=== PATIENT | female | born 1990 ===

== ENCOUNTER 2017-02-20 18:35 | Emergency (ER) | payer SELFPAY ==
[2017-02-20 19:03] VITALS: BMI 24.1
[2017-02-20 19:06] VITALS: BP 130/75; PULSE 74; TEMP 98.7; O2SAT 99
[2017-02-20] MEDS ORDERED: Sodium Chloride 0.9% 500 ML IV ONE (19:28)
--- NOTE | 2017-02-20 19:54 | C.PDOC ---
History Of Present Illness 26 y/o female presents to the ED with complaints of persistent vaginal bleeding x1 week. Pt reports heavy bleeding with clots. History of heavy irregular bleeding on hormonal therapy in the past; hasn't followed up with OB since [place]. Denies dysuria, frequency, fever, dizziness or any other complaints. Time Seen by Provider: 02/20/17 19:28 Chief Complaint (Nursing): Female Genitourinary History Per: Patient History/Exam Limitations: no limitations Onset/Duration Of Symptoms: Days Current Symptoms Are (Timing): Still Present Severity: Moderate Associated Symptoms: denies: Fever, Urinary Symptoms Alleviating Factors: None Recent travel outside of the [place]: No Abnormal Vaginal Bleeding: Yes Past Medical History Reviewed: Historical Data, Nursing Documentation, Vital Signs Vital Signs: Last Vital Signs Temp 98.7 F 02/20/17 19:03 Pulse 74 02/20/17 19:03 Resp 20 02/20/17 21:15 BP 130/75 02/20/17 19:03 Pulse Ox 99 02/20/17 20:44 Family History: States: Unknown Family Hx - Social History Hx Alcohol Use: No Hx Substance Use: No - Immunization History Hx Tetanus Toxoid Vaccination: No Hx Influenza Vaccination: No Hx Pneumococcal Vaccination: No Review Of Systems Except As Marked, All Systems Reviewed And Found Negative. Constitutional: Negative for: Fever Gastrointestinal: Negative for: Abdominal Pain Genitourinary: Positive for: Vaginal Bleeding. Negative for: Dysuria, Frequency Neurological: Negative for: Dizziness Physical Exam - Physical Exam Appears: Non-toxic, No Acute Distress Skin: Warm, Dry, No Rash Head: Atraumatic, Normacephalic Chest: Symmetrical Cardiovascular: Rhythm Regular, No Murmur Respiratory: Normal Breath Sounds, No Rales, No Rhonchi, No Wheezing Gastrointestinal/Abdominal: Normal Exam, Soft, No Tenderness Pelvic: No Cervical Motion Tenderness, No Adnexal Tenderness, Other (brownish blood in vaginal vault, no active bleeding; cervical os closed) Extremity: Bilateral: Atraumatic Neurological/Psych: Oriented x3, Normal Speech ED Course And Treatment - Laboratory Results Result Diagrams: 02/20/17 20:14 02/20/17 20:14 O2 Sat by Pulse Oximetry: 99 (room air) Pulse Ox Interpretation: Normal Progress Note: Plan: labs, UA, IV fluids. Pt is stable nd in NAD, will follow up with oB clinic Disposition Counseled Patient/Family Regarding: Diagnosis, Need For Followup, Rx Given - Disposition Referrals: Lorenzo Casanova [Staff Provider] - [facility] [Outside] Disposition: HOME/ ROUTINE Disposition Time: 20:30 Condition: STABLE Additional Instructions: Please follow up with OB clinic- LOIS ortegaa Return to ER if worse Instructions: Dysfunctional Uterine Bleeding (ED) Forms: Work/School/Gym Excuse Print Language: MONGOLIAN - Clinical Impression Clinical Impression: Vaginal bleeding - PA / CARD HANGER / Resident Statement MD/DO has reviewed & agrees with the documentation as recorded. - Scribe Statement The provider has reviewed the documentation as recorded by the Parkibvini Schwarz All medical record entries made by the Parkibvini were at my direction and personally dictated by me. I have reviewed the chart and agree that the record accurately reflects my personal performance of the history, physical exam, medical decision making, and the department course for this patient. I have also personally directed, reviewed, and agree with the discharge instructions and disposition.
[2017-02-20 20:21] LABS: BASO # 0.1 K/uL (0.0-0.2); BASO % 1.1 % (0.0-2.0); EOS # 0.2 K/uL (0.0-0.7); EOS % 2.3 % (0.0-4.0); HEMATOCRIT 35.7 % (34.0-47.0); LYMPH # 4.2 K/uL (1.0-4.3); LYMPH % 41.5 % (20.0-40.0); MEAN CELL VOLUME 81.9 fL (81.0-99.0); MEAN CORPUSCULAR HEMOGLOBIN 26.4 pg (27.0-31.0); MEAN CORPUSCULAR HGB CONC 32.2 g/dL (33.0-37.0); MEAN PLATELET VOLUME 7.9 fL (7.2-11.7); MONO # 0.9 K/uL (0.0-0.8); MONO % 8.9 % (0.0-10.0); RED CELL DISTRIBUTION WIDTH 14.6 % (11.5-14.5); WHITE BLOOD COUNT 10.2 K/uL (4.8-10.8)
[2017-02-20 20:27] LABS: CHLORIDE 104 mmol/L (98-107); RBC URINE 2733 /hpf (0-3); URINE BACTERIA FEW (<OCC); URINE BILIRUBIN NEGATIVE (NEGATIVE); URINE BLOOD 3+ (NEGATIVE); URINE COLOR Yellow (YELLOW); URINE GLUCOSE (UA) NORMAL (Normal); URINE KETONE NEGATIVE (NEGATIVE); URINE LEUKOCYTE ESTERASE TRACE Leu/uL (Negative); URINE PROTEIN 2+ mg/dL (NEGATIVE); URINE UROBILINOGEN NORMAL mg/dL (0.2-1.0); WBC URINE 9 /hpf (0-5)
[2017-02-20 20:28] LABS: POTASSIUM 3.6 mmol/L (3.6-5.2); SODIUM 140 mmol/L (132-148)
[2017-02-20 20:30] LABS: ALB/GLOB RATIO 1.3 (1.0-2.1); ALKALINE PHOSPHATASE 96 U/L (38-126); ALT/SGPT 27 U/L (9-52); AST/SGOT 23 U/L (14-36); BILIRUBIN,TOTAL 0.4 mg/dL (0.2-1.3); BLOOD UREA NITROGEN 11 mg/dL (7-17); CARBON DIOXIDE 26 mmol/L (22-30); GFR AFRICAN-AMERICAN > 60; TOTAL PROTEIN 7.5 g/dL (6.3-8.3)
[2017-02-20 20:31] LABS: CALCIUM 8.8 mg/dl (8.6-10.4); GLUCOSE,RANDOM 90 mg/dL (65-105)
[2017-02-20 21:16] VITALS: RESP 20
== END 2017-02-20 21:15 | disposition home or self-care (01) ==
LOC: C.ER 18:35
DX: N93.9 Abnormal uterine and vaginal bleeding, unspecified (principal)
CPT/HCPCS: 80053; 81001; 84703; 85025; 96360; 99284; J7040

== ENCOUNTER 2017-04-12 11:52 | Emergency (ER) | payer OTHER ==
[2017-04-12 11:57] VITALS: BMI 25.7
[2017-04-12 11:58] VITALS: BP 118/67; PULSE 69; RESP 20; TEMP 97.9; O2SAT 97
--- NOTE | 2017-04-12 12:14 | C.PDOC ---
History Of Present Illness 26 y/o female presents to ED with complaints of itchy rash on abdomen and left leg for 4 days. Patient denies fever, recent travel, or anyone else at home having similar symptoms. No other complaints at this time. Time Seen by Provider: 04/12/17 12:07 Chief Complaint (Nursing): Abnormal Skin Integrity History Per: Patient History/Exam Limitations: no limitations Onset/Duration Of Symptoms: Days Current Symptoms Are (Timing): Still Present Location Of Injury: Left: Leg, Anterior: Abdomen Quality Of Symptoms: Itching Additional History Per: Patient Past Medical History Reviewed: Historical Data, Nursing Documentation, Vital Signs Vital Signs: Last Vital Signs Temp 97.9 F 04/12/17 11:57 Pulse 69 04/12/17 11:57 Resp 20 04/12/17 11:57 BP 118/67 04/12/17 11:57 Pulse Ox 97 04/12/17 12:24 - Medical History PMH: No Chronic Diseases Family History: States: Unknown Family Hx - Social History Hx Alcohol Use: No Hx Substance Use: No - Immunization History Hx Tetanus Toxoid Vaccination: No Hx Influenza Vaccination: No Hx Pneumococcal Vaccination: No Review Of Systems Constitutional: Negative for: Fever, Chills ENT: Negative for: Ear Pain, Throat Pain Respiratory: Negative for: Cough, Shortness of Breath Gastrointestinal: Negative for: Nausea, Vomiting, Diarrhea Skin: Positive for: Rash Neurological: Negative for: Headache, Dizziness Physical Exam - Physical Exam Appears: Well, No Acute Distress Skin: Warm, Rash (Right flank and lower abdomen scattered insect bite lesions with surrounding erythema), No Ecchymosis, Other (Left leg scattered insect bites) Head: Atraumatic, Normacephalic Eye(s): bilateral: Normal Inspection Oral Mucosa: Moist Neck: Normal ROM Chest: Symmetrical Extremity: Normal ROM, Capillary Refill (<2 seconds) Neurological/Psych: Oriented x3, Normal Speech ED Course And Treatment O2 Sat by Pulse Oximetry: 97 (RA) Pulse Ox Interpretation: Normal Medical Decision Making Medical Decision Making: Impression: insect bites, no signs of cellulitis Plan: Benadryl and Prescriptions Disposition Counseled Patient/Family Regarding: Diagnosis, Need For Followup, Rx Given - Disposition Disposition: HOME/ ROUTINE Disposition Time: 12:30 Condition: STABLE Additional Instructions: Apply cream twice daily to affected area Take Benadryl every 8 hours as needed for itching Prescriptions: DiphenhydrAMINE [Benadryl] 25 mg PO Q8 #30 cap Hydrocortisone [Cortisone] 28 gm TP BID #1 cream..g. Instructions: Insect Bite or Sting (ED) Forms: [employer] (Colombian) Print Language: JAPANESE - POA Present On Arrival: None - Clinical Impression Clinical Impression: Insect bite - wound - Scribe Statement The provider has reviewed the documentation as recorded by the Kaylene Bell All medical record entries made by the Kaylene were at my direction and personally dictated by me. I have reviewed the chart and agree that the record accurately reflects my personal performance of the history, physical exam, medical decision making, and the department course for this patient. I have also personally directed, reviewed, and agree with the discharge instructions and disposition.
== END 2017-04-12 12:33 | disposition home or self-care (01) ==
LOC: C.ER 11:52
DX: S30.861A Insect bite (nonvenomous) of abdominal wall, initial encounter (principal); S80.862A Insect bite (nonvenomous), left lower leg, initial encounter; W57.XXXA Bitten or stung by nonvenomous insect and other nonvenomous arthropods, initial encounter; Y93.9 Activity, unspecified; Y92.9 Unspecified place or not applicable

== ENCOUNTER 2017-06-19 13:25 | Emergency (ER) | payer OTHER ==
[2017-06-19 13:25] VITALS: BMI 25.7
[2017-06-19] MEDS ORDERED: Sodium Chloride 0.9% 1,000 ML IV ONE (15:58)
[2017-06-19 16:56] LABS: BASO # 0.1 K/uL (0.0-0.2); BASO % 1.1 % (0.0-2.0); EOS # 0.2 K/uL (0.0-0.7); EOS % 1.4 % (0.0-4.0); HEMATOCRIT 29.8 % (34.0-47.0); LYMPH # 3.9 K/uL (1.0-4.3); LYMPH % 32.5 % (20.0-40.0); MEAN CORPUSCULAR HGB CONC 32.1 g/dL (33.0-37.0); MEAN PLATELET VOLUME 7.4 fL (7.2-11.7); MONO # 0.9 K/uL (0.0-0.8); MONO % 7.8 % (0.0-10.0); NRBC % 0.2 % (0.0-2.0); RED CELL DISTRIBUTION WIDTH 15.3 % (11.5-14.5); WHITE BLOOD COUNT 12.2 K/uL (4.8-10.8)
[2017-06-19 16:59] LABS: MEAN CELL VOLUME 77.9 fL (81.0-99.0)
[2017-06-19 17:17] LABS: CHLORIDE 99 mmol/L (98-107)
[2017-06-19 17:18] LABS: POTASSIUM 3.7 mmol/L (3.6-5.2); SODIUM 133 mmol/L (132-148)
[2017-06-19 17:20] LABS: CARBON DIOXIDE 22 mmol/L (22-30); GFR AFRICAN-AMERICAN > 60
[2017-06-19 17:21] LABS: ALB/GLOB RATIO 1.2 (1.0-2.1); ALKALINE PHOSPHATASE 79 U/L (38-126); ALT/SGPT 37 U/L (9-52); AST/SGOT 31 U/L (14-36); BILIRUBIN,TOTAL 0.5 mg/dL (0.2-1.3); BLOOD UREA NITROGEN 13 mg/dL (7-17); CALCIUM 8.8 mg/dl (8.6-10.4); GLUCOSE,RANDOM 115 mg/dL (65-105)
[2017-06-19 17:23] LABS: RBC URINE 1909 /hpf (0-3); URINE BACTERIA OCC (<OCC); URINE BILIRUBIN NEGATIVE (NEGATIVE); URINE BLOOD 3+ (NEGATIVE); URINE COLOR Yellow (YELLOW); URINE GLUCOSE (UA) NORMAL (Normal); URINE KETONE NEGATIVE (NEGATIVE); URINE LEUKOCYTE ESTERASE NEG Leu/uL (Negative); URINE PROTEIN 1+ mg/dL (NEGATIVE); URINE UROBILINOGEN NORMAL mg/dL (0.2-1.0); WBC URINE 1 /hpf (0-5)
[2017-06-19 18:12] VITALS: BP 128/83; PULSE 72; RESP 16; TEMP 98; O2SAT 100
--- NOTE | 2017-06-19 20:20 | US ---
EXAM: US Pelvis Complete, Transabdominal US Pelvis, Transvaginal CLINICAL HISTORY: 26 years old, female; Signs and symptoms; Menstruation abnormalities; Irregular menstruation; Additional info: Abnormal/prolonged vaginal bleeding TECHNIQUE: Real-time transabdominal and transvaginal pelvic ultrasound (complete) with image documentation. Transvaginal imaging was used for better evaluation of the endometrium and adnexa. COMPARISON: No relevant prior studies available. FINDINGS: Uterus/cervix: The uterus measures 8.5 x 3.4 x 5.2 cm. Endometrial stripe measures 7 mm. . Right ovary: The right ovary measures 3 x 2.1 x 1.9 cm. Blood flow seen in the right ovary on color Doppler examination. Left ovary: The left ovary measures 2.7 x 2 x 2.3 cm. Subcentimeter follicles are present. Free fluid: No free fluid. Bladder: Unremarkable as visualized. Wall is normal thickness for degree of distention. IMPRESSION: No acute findings. EXAM: US Pelvis, Transvaginal EXAM DATE/TIME: Exam ordered 06/19/2017 5:22 PM CLINICAL HISTORY: 26 years old, female; Signs and symptoms; Menstruation abnormalities; Irregular menstruation; Additional info: Abnormal/prolonged vaginal bleeding TECHNIQUE: Real-time transvaginal pelvic ultrasound (complete) with image documentation. Transvaginal imaging was used for better evaluation of the endometrium and adnexa. COMPARISON: No relevant prior studies available. FINDINGS: Uterus/cervix: The uterus is a retroflexed. The endometrial stripe measures 1.3 cm in thickness. Right ovary: The right ovary measures 3.1 x 1.7 x 2.8 cm and contains subcentimeter follicles. There is blood flow within the right ovary on color Doppler examination. Left ovary: The left ovary measures 4.2 x 2.6 x 2.7 cm. Several subcentimeter peripheral follicles are noted. There is blood flow seen within the left ovary on color Doppler examination. Free fluid: A small amount of fluid is seen in the posterior cul-de-sac. Bladder: Empty bladder which cannot be evaluated with this probe. IMPRESSION: 1. Multiple peripheral subcentimeter follicles are noted in both ovaries. This has been described in association with polycystic ovaries but is a nonspecific finding. Additionally the ovaries are normal in size.
--- NOTE | 2017-06-19 20:43 | C.PDOC ---
History Of Present Illness Pt c/o abnormal vaginal bleeding. Time Seen by Provider: 06/19/17 15:42 Chief Complaint (Nursing): Female Genitourinary History Per: Patient Onset/Duration Of Symptoms: Days (about 1 month), Waxing/Waning Current Symptoms Are (Timing): Still Present Severity: Moderate Quality Of Discomfort: Cramping Alleviating Factors: None Additional History Per: Prior Records Abnormal Vaginal Bleeding: Yes Past Medical History Reviewed: Historical Data, Nursing Documentation, Vital Signs Vital Signs: Last Vital Signs Temp 98 F 06/19/17 18:11 Pulse 72 06/19/17 18:11 Resp 16 06/19/17 18:11 BP 128/83 06/19/17 18:11 Pulse Ox 100 06/19/17 18:11 - Medical History PMH: No Chronic Diseases Surgical History: No Surg Hx Family History: States: Unknown Family Hx - Social History Hx Alcohol Use: No Hx Substance Use: No - Immunization History Hx Tetanus Toxoid Vaccination: No Hx Influenza Vaccination: No Hx Pneumococcal Vaccination: No Review Of Systems Except As Marked, All Systems Reviewed And Found Negative. Constitutional: Negative for: Fever Cardiovascular: Negative for: Chest Pain Respiratory: Negative for: Shortness of Breath Gastrointestinal: Negative for: Vomiting Genitourinary: Positive for: Vaginal Bleeding, Pelvic Pain Musculoskeletal: Negative for: Neck Pain Skin: Negative for: Rash Neurological: Negative for: Weakness, Numbness, Seizures Physical Exam - Physical Exam Appears: Non-toxic, No Acute Distress Skin: Warm, Dry Head: Atraumatic, Normacephalic Neck: Normal ROM, Supple Cardiovascular: Rhythm Regular Respiratory: Normal Breath Sounds, No Accessory Muscle Use Gastrointestinal/Abdominal: Soft, No Tenderness Back: No CVA Tenderness Extremity: Normal ROM Neurological/Psych: Oriented x3, Normal Motor, Normal Sensation ED Course And Treatment - Laboratory Results Result Diagrams: 06/19/17 16:52 06/19/17 16:52 Interpretation Of Abnormal: Mild anemia Urine POC: Negative O2 Sat by Pulse Oximetry: 100 Pulse Ox Interpretation: Normal - CT Scan/US Pelvic US Other Rad Studies (CT/US): Read By Radiologist, Radiology Report Reviewed CT/US Interpretation: IMPRESSION: 1. Multiple peripheral subcentimeter follicles are noted in both ovaries. This. has been described in association with polycystic ovaries but is a nonspecific. finding. Additionally the ovaries are normal in size. Reassessment Condition: Improved Disposition Counseled Patient/Family Regarding: Studies Performed, Diagnosis, Need For Followup, Rx Given - Disposition Referrals: Lorenzo Casanova [Staff Provider] - Disposition: HOME/ ROUTINE Disposition Time: 20:43 Condition: STABLE Additional Instructions: Follow up with a Gasoline Truck Operator within 1 week for further evaluation and treatment. Return to the ER if you develop worsening of symptoms or if you have any other concerns. Prescriptions: Ferrous Sulfate 325 mg PO TID #30 tablet Ibuprofen [Motrin Tab] 600 mg PO TID PRN #30 tab PRN Reason: Pain, Moderate (4-7) Instructions: Dysfunctional Uterine Bleeding (ED) Forms: [employer] (Iranian), Work Excuse Print Language: HEBREW - Clinical Impression Clinical Impression: DUB (dysfunctional uterine bleeding)
== END 2017-06-19 20:50 | disposition home or self-care (01) ==
LOC: C.ER 13:25
DX: N93.8 Other specified abnormal uterine and vaginal bleeding (principal)
CPT/HCPCS: 76830; 76856; 80053; 81001; 84702; 84703; 85025; 85610; 85730; 86850; 86900; 96360; 99284; J7040

== ENCOUNTER 2017-10-09 09:12 | Emergency (ER) | payer OTHER ==
[2017-10-09 09:19] VITALS: BMI 24.2
[2017-10-09 09:20] VITALS: BP 136/85; PULSE 81; TEMP 99.1; O2SAT 99
--- NOTE | 2017-10-09 09:42 | C.PDOC ---
History Of Present Illness 26 y/o female presents to the ER complaining of a painful lesion to the left upper lip which has been present for 2 days. Patient states that this is her first episode. Patient reports that she has been applying Neosporin which provided no relief. She denies having trauma, injuries, fever, and other complaints. Time Seen by Provider: 10/09/17 09:21 Chief Complaint (Nursing): Abnormal Skin Integrity History Per: Patient History/Exam Limitations: no limitations Onset/Duration Of Symptoms: Days Current Symptoms Are (Timing): Still Present Severity: Moderate Past Medical History Reviewed: Historical Data, Nursing Documentation, Vital Signs Vital Signs: Last Vital Signs Temp 99.1 F 10/09/17 09:20 Pulse 81 10/09/17 09:20 Resp 18 10/09/17 10:15 BP 136/85 10/09/17 09:20 Pulse Ox 99 10/09/17 16:04 - Medical History PMH: No Chronic Diseases Surgical History: No Surg Hx Family History: States: No Known Family Hx - Social History Hx Alcohol Use: No Hx Substance Use: No - Immunization History Hx Tetanus Toxoid Vaccination: No Hx Influenza Vaccination: No Hx Pneumococcal Vaccination: No Review Of Systems Except As Marked, All Systems Reviewed And Found Negative. Constitutional: Negative for: Fever, Chills Skin: Positive for: Lesions (lesion on left upper lip) Physical Exam - Physical Exam Appears: Non-toxic, No Acute Distress, Other (comfortable) Skin: Normal Color, Warm Head: Atraumatic, Normacephalic Eye(s): bilateral: Normal Inspection, PERRL Nose: Normal Oral Mucosa: Moist, Other (no lesions) Lips: Swelling (mild swelling on left upper lip), Lesions (vesicular lesion on left upper lip), Other (mildly tender to palpation on left upper lip) Throat: Normal, No Erythema, No Exudate Neck: Supple Chest: Symmetrical Cardiovascular: Rhythm Regular Respiratory: Normal Breath Sounds, No Accessory Muscle Use, No Rales, No Rhonchi , No Wheezing Gastrointestinal/Abdominal: Normal Exam, Soft, No Tenderness Extremity: Normal ROM Neurological/Psych: Oriented x3, Normal Speech, Normal Cognition, Normal Motor, Normal Sensation ED Course And Treatment O2 Sat by Pulse Oximetry: 99 (RA) Pulse Ox Interpretation: Normal Progress Note: Patient given Zovirax. Patient discharged with prescription for Zovirax and told to follow up with ENT in 1 week. Disposition Counseled Patient/Family Regarding: Studies Performed, Diagnosis, Need For Followup, Rx Given - Disposition Referrals: [facility] [Outside] Disposition: HOME/ ROUTINE Disposition Time: 09:55 Condition: STABLE Additional Instructions: FOLLOW UP WITH ENT WITHIN 1 WEEK RETURN TO ER IF SYMPTOMS WORSEN Prescriptions: Acyclovir 400 mg PO TID #21 tablet Instructions: Oral Herpes Simplex Virus Infections (ED) Forms: Gen Discharge Inst Greek, Work Excuse Print Language: TAMAZIGHT - Clinical Impression Clinical Impression: Oral herpes simplex infection - Scribe Statement The provider has reviewed the documentation as recorded by the Kaylene Chery Provider Attestation: All medical record entries made by the Parkibvini were at my direction and personally dictated by me. I have reviewed the chart and agree that the record accurately reflects my personal performance of the history, physical exam, medical decision making, and the department course for this patient. I have also personally directed, reviewed, and agree with the discharge instructions and disposition.
[2017-10-09 10:16] VITALS: RESP 18
== END 2017-10-09 10:16 | disposition home or self-care (01) ==
LOC: C.ER 09:12
DX: B00.2 Herpesviral gingivostomatitis and pharyngotonsillitis (principal)

== ENCOUNTER 2017-12-06 20:11 | Emergency (ER) | payer OTHER ==
[2017-12-06 20:11] VITALS: BMI 24.2
[2017-12-06] MEDS ORDERED: Sodium Chloride 0.9% 1,000 ML IV ONE (20:50)
[2017-12-06 20:58] LABS: BASO # 0.1 K/uL (0.0-0.2); EOS # 0.2 K/uL (0.0-0.7); EOS % 1.6 % (0.0-4.0); HEMOGLOBIN 10.9 g/dL (11.0-16.0); LYMPH # 6.2 K/uL (1.0-4.3); LYMPH % 50.2 % (20.0-40.0); MEAN CORPUSCULAR HEMOGLOBIN 20.2 pg (27.0-31.0); MEAN CORPUSCULAR HGB CONC 30.6 g/dL (33.0-37.0); MEAN PLATELET VOLUME 7.7 fL (7.2-11.7); MONO # 1.1 K/uL (0.0-0.8); MONO % 8.8 % (0.0-10.0); NEUT # 4.7 K/uL (1.8-7.0); NEUT % 38.4 % (50.0-75.0); RBC 5.41 Mil/uL (3.80-5.20); RED CELL DISTRIBUTION WIDTH 17.1 % (11.5-14.5); WHITE BLOOD COUNT 12.3 K/uL (4.8-10.8)
[2017-12-06 21:03] LABS: HCG,QUALITATIVE URINE NEGATIVE (NEGATIVE)
[2017-12-06 21:06] LABS: SQUAMOUS EPITHIAL 12 /hpf (0-5); URINE BACTERIA RARE (<OCC); URINE BILIRUBIN NEGATIVE (NEGATIVE); URINE BLOOD NEGATIVE (NEGATIVE); URINE CLARITY Hazy (Clear); URINE COLOR Yellow (YELLOW); URINE GLUCOSE (UA) NORMAL (Normal); URINE LEUKOCYTE ESTERASE NEG Leu/uL (Negative); URINE PROTEIN NEGATIVE (NEGATIVE); URINE UROBILINOGEN NORMAL mg/dL (0.2-1.0)
[2017-12-06 21:42] LABS: ALB/GLOB RATIO 1.2 (1.0-2.1); ALBUMIN 3.8 g/dL (3.5-5.0); CALCIUM 7.8 mg/dl (8.6-10.4); GFR AFRICAN-AMERICAN > 60; GFR NON-AFRICAN AMERICAN > 60; LIPASE 121 U/L (23-300)
[2017-12-06 21:49] LABS: ALT/SGPT 39 U/L (9-52); AST/SGOT 41 U/L (14-36); BLOOD UREA NITROGEN 12 mg/dL (7-17)
--- NOTE | 2017-12-06 22:02 | C.PDOC ---
Time Seen by Provider: 12/06/17 20:35 Chief Complaint (Nursing): Abdominal Pain History Per: Patient Onset/Duration Of Symptoms: Hrs Current Symptoms Are (Timing): Still Present Severity: Moderate Location Of Pain/Discomfort: Epigastric Quality Of Discomfort: "Pain" Associated Symptoms: Nausea, Vomiting Alleviating Factors: None Additional History Per: Prior Records Past Medical History Reviewed: Historical Data, Nursing Documentation, Vital Signs Vital Signs: Last Vital Signs Temp 97.9 F 12/06/17 20:22 Pulse 71 12/06/17 20:22 Resp 16 12/06/17 20:22 BP 133/88 12/06/17 20:22 Pulse Ox 100 12/06/17 20:22 - Medical History PMH: No Chronic Diseases Surgical History: Family History: States: Unknown Family Hx - Social History Hx Tobacco Use: No Hx Alcohol Use: No Hx Substance Use: No - Immunization History Hx Tetanus Toxoid Vaccination: No Hx Influenza Vaccination: No Hx Pneumococcal Vaccination: No Review Of Systems Except As Marked, All Systems Reviewed And Found Negative. Constitutional: Negative for: Fever, Weakness Cardiovascular: Negative for: Chest Pain Respiratory: Negative for: Shortness of Breath Gastrointestinal: Positive for: Nausea, Vomiting, Abdominal Pain. Negative for : Diarrhea, Melena, Hematochezia, Hematemesis Genitourinary: Negative for: Dysuria Musculoskeletal: Negative for: Neck Pain, Back Pain Skin: Negative for: Rash Neurological: Negative for: Weakness, Numbness, Headache Physical Exam - Physical Exam Appears: Non-toxic, No Acute Distress Skin: Normal Color, Warm, Dry, No Rash Head: Atraumatic, Normacephalic Eye(s): bilateral: Normal Inspection, PERRL, EOMI Neck: Normal ROM, Supple Cardiovascular: Rhythm Regular Respiratory: Normal Breath Sounds, No Accessory Muscle Use Gastrointestinal/Abdominal: Soft, Tenderness (mild epigastric), No Distention, No Guarding, No Rebound Back: No CVA Tenderness Extremity: Normal ROM Neurological/Psych: Oriented x3, Normal Motor, Normal Sensation ED Course And Treatment - Laboratory Results Result Diagrams: 12/06/17 20:54 12/06/17 21:26 Urine POC: Negative O2 Sat by Pulse Oximetry: 100 Pulse Ox Interpretation: Normal Progress - Interventions Interventions:: Observation, Intravenous fluid - Medications Administered Intravenous: Antiemetic, H-2 maycol - Data Reviewed Data Reviewed: Lab, Old records - Patient Status Patient status: Mostly improved - Continuity of Care Discussed patient case with:: Patient, Family-HIPPA compliant, ED Nurse - Patient Plan Patient Plan: Discharge, F/U with PCP Disposition Counseled Patient/Family Regarding: Studies Performed, Diagnosis, Need For Followup, Rx Given - Disposition Referrals: [facility] [Outside] Disposition: HOME/ ROUTINE Disposition Time: 22:02 Condition: IMPROVED Additional Instructions: Follow up in the clinic for further evaluation and treatment. Return to the ER if you develop fever, vomiting, bloody or back stools, worsening of symptoms or if you have any other concerns. Prescriptions: Famotidine [Pepcid] 20 mg PO BID #30 tab Metoclopramide [Reglan] 1 tab PO TID PRN #15 tab PRN Reason: Nausea/Vomiting Instructions: Gastritis (DC) Print Language: BURKINAN - Clinical Impression Clinical Impression: Epigastric pain, Nausea & vomiting
[2017-12-07 11:43] VITALS: BP 116/76; PULSE 64; RESP 18; TEMP 97.5; O2SAT 100
== END 2017-12-06 22:12 | disposition home or self-care (01) ==
LOC: C.ER 20:11
DX: R11.2 Nausea with vomiting, unspecified (principal); R10.13 Epigastric pain
CPT/HCPCS: 80053; 81001; 83690; 84703; 85025; 96361; 96374; 96375; 99285; J2765; J7040

== ENCOUNTER → 2018-02-05 16:19 | Emergency (ER) | payer OTHER ==
[2018-02-05 16:20] VITALS: BMI 24.2
== END | disposition left against medical advice (07) ==
LOC: C.ER 16:19
DX: Z02.89 Encounter for other administrative examinations (principal); M54.9 Dorsalgia, unspecified

== ENCOUNTER 2018-02-13 08:24 | Emergency (ER) | payer OTHER ==
[2018-02-13 08:25] VITALS: BMI 24.2
[2018-02-13 08:31] VITALS: BP 143/87; PULSE 64; TEMP 98.9; O2SAT 98
--- NOTE | 2018-02-13 09:14 | C.PDOC ---
History Of Present Illness <TuanRanda Cecilia - Last Filed: 02/13/18 13:58> <YassineDarwin - Last Filed: 02/15/18 14:09> 27 year old female reports she is 6 weeks and noticed spotting today after having intercourse with . Patient states she had no pain during intercourse and when she went to bathroom noticed spots of brownish discharge and rushed to the emergency room for evaluation. She denies any current pain or bright red vaginal bleeding. Patient is taking vitamins and her ob.truck service manager appointment is set up for 03/02/18. She is with prior . (Randa Dickerson) History Per: Patient History/Exam Limitations: no limitations Onset/Duration Of Symptoms: Days Current Symptoms Are (Timing): Still Present <TuanEricRanda L - Last Filed: 02/13/18 13:58> <Darwin Metzger - Last Filed: 02/15/18 14:09> Time Seen by Provider: 02/13/18 08:35 Chief Complaint (Nursing): Female Genitourinary Past Medical History Reviewed: Historical Data, Nursing Documentation, Vital Signs - Medical History PMH: No Chronic Diseases Surgical History: Family History: States: No Known Family Hx - Social History Hx Tobacco Use: No Hx Alcohol Use: No Hx Substance Use: No - Immunization History Hx Tetanus Toxoid Vaccination: No Hx Influenza Vaccination: No Hx Pneumococcal Vaccination: No <DickersonRanda - Last Filed: 02/13/18 13:58> Vital Signs: Last Vital Signs Temp 98.9 F 02/13/18 08:28 Pulse 64 02/13/18 08:28 Resp 18 02/13/18 09:31 BP 143/87 02/13/18 08:28 Pulse Ox 98 02/13/18 13:58 Review Of Systems Constitutional: Negative for: Fever, Chills Gastrointestinal: Negative for: Nausea, Vomiting, Abdominal Pain Genitourinary: Positive for: Vaginal Discharge, Vaginal Bleeding. Negative for : Dysuria Skin: Negative for: Rash <TuanEricRanda L - Last Filed: 02/13/18 13:58> Physical Exam - Physical Exam Appears: Non-toxic, No Acute Distress Skin: Warm, Dry, No Rash Head: Atraumatic, Normacephalic Eye(s): bilateral: Normal Inspection Oral Mucosa: Moist Neck: Normal ROM, Supple Cardiovascular: Rhythm Regular Respiratory: Normal Breath Sounds, No Rales, No Rhonchi, No Wheezing Gastrointestinal/Abdominal: Soft, No Tenderness, No Guarding, No Rebound Pelvic: No Vaginal Bleeding, Vaginal Discharge (scant brown), No Cervix Open, No Adnexal Tenderness, No Tender Uterus Neurological/Psych: Oriented x3, Normal Speech, Normal Cognition <Randa Dickerson - Last Filed: 02/13/18 13:58> ED Course And Treatment O2 Sat by Pulse Oximetry: 98 (RA) Pulse Ox Interpretation: Normal <Randa Dickerson - Last Filed: 02/13/18 13:58> Medical Decision Making <Randa Dickerson - Last Filed: 02/13/18 13:58> <Darwin Metzger - Last Filed: 02/15/18 14:09> Medical Decision Making: Patient remained well in no acute distress. She has no pelvic pain or current bleeding. Pelvic exam showed closed os. Patient reassured and advised to follow up with urgent care technician (Randa Dickerson) Disposition Counseled Patient/Family Regarding: Diagnosis, Need For Followup - Disposition Disposition Time: 09:11 - POA Present On Arrival: None <Randa Dickerson - Last Filed: 02/13/18 13:58> <Darwin Metzger - Last Filed: 02/15/18 14:09> - [facility] Disposition: HOME/ ROUTINE Condition: GOOD Instructions: Activity During Forms: [employer] (Swiss) Print Language: ECUADOREAN - Clinical Impression Clinical Impression: Normal pelvic exam, - PA / HOT DIMPLING MACHINE OPERATOR / Resident Statement / has reviewed & agrees with the documentation as recorded. - Scribe Statement The provider has reviewed the documentation as recorded by the Scribe <Randa Dickerson - Last Filed: 02/13/18 13:58> - PA / HOT DIMPLING MACHINE OPERATOR / Resident Statement ARASH has reviewed & agrees with the documentation as recorded. <Darwin Metzger - Last Filed: 02/15/18 14:09> - Scribe Statement Simeon Bell All medical record entries made by the Parkibvini were at my direction and personally dictated by me. I have reviewed the chart and agree that the record accurately reflects my personal performance of the history, physical exam, medical decision making, and the department course for this patient. I have also personally directed, reviewed, and agree with the discharge instructions and disposition. (Randa Dickerson)
[2018-02-13 10:18] VITALS: RESP 18
== END 2018-02-13 10:18 | disposition home or self-care (01) ==
LOC: C.ER 08:24
DX: O26.891 Other specified pregnancy related conditions, first trimester (principal); O26.851 Spotting complicating pregnancy, first trimester; Z3A.01 Less than 8 weeks gestation of pregnancy

== ENCOUNTER 2018-02-21 21:46 | Emergency (ER) | payer SELFPAY ==
[2018-02-21 21:46] VITALS: BMI 24.2
[2018-02-21] MEDS ORDERED: Sodium Chloride 0.9% 1,000 ML IV ONE (22:22)
--- NOTE | 2018-02-21 22:22 | C.PDOC ---
Time Seen by Provider: 02/21/18 22:22 Chief Complaint (Nursing): Abdominal Pain Past Medical History Reviewed: Historical Data, Nursing Documentation, Vital Signs Vital Signs: Last Vital Signs Temp 99.1 F 02/21/18 22:08 Pulse 70 02/21/18 22:08 Resp 16 02/21/18 22:08 BP 117/77 02/21/18 22:08 Pulse Ox 100 02/21/18 22:22 Surgical History: Family History: States: No Known Family Hx, Unknown Family Hx - Social History Hx Tobacco Use: No Hx Alcohol Use: No Hx Substance Use: No - Immunization History Hx Tetanus Toxoid Vaccination: No Hx Influenza Vaccination: No Hx Pneumococcal Vaccination: No Review Of Systems Constitutional: Negative for: Fever, Chills Cardiovascular: Negative for: Chest Pain Respiratory: Negative for: Shortness of Breath Gastrointestinal: Positive for: Abdominal Pain (llq). Negative for: Nausea Genitourinary: Negative for: Dysuria Musculoskeletal: Negative for: Back Pain Skin: Negative for: Rash Neurological: Negative for: Weakness Psych: Negative for: Anxiety Physical Exam - Physical Exam Appears: Non-toxic, No Acute Distress Skin: Warm, Dry Oral Mucosa: Moist Neck: Supple Cardiovascular: Rhythm Regular Respiratory: No Rales, No Rhonchi, No Wheezing Gastrointestinal/Abdominal: Soft, Tenderness (mild llq), No Guarding, No Rebound Back: Normal Inspection Extremity: Bilateral: Atraumatic Neurological/Psych: Oriented x3 Gait: Steady ED Course And Treatment - Laboratory Results Result Diagrams: 02/21/18 22:53 02/21/18 22:53 O2 Sat by Pulse Oximetry: 100 Pulse Ox Interpretation: Normal Reevaluation Time: 00:09 Reassessment Condition: Improved Disposition Counseled Patient/Family Regarding: Studies Performed, Diagnosis, Need For Followup - Disposition Referrals: [facility] [Outside] [facility] [Outside] Disposition: HOME/ ROUTINE Disposition Time: 22:22 Condition: FAIR Additional Instructions: Please return if symptoms recur Instructions: Round Ligament Pain, - The Second Month Forms: [facility] (Malaysian) Print Language: UGANDAN - Clinical Impression Clinical Impression: Abdominal pain during
[2018-02-21 22:56] LABS: BASO # 0.2 K/uL (0.0-0.2); BASO % 1.1 % (0.0-2.0); EOS # 0.2 K/uL (0.0-0.7); EOS % 1.4 % (0.0-4.0); HEMOGLOBIN 10.8 g/dL (11.0-16.0); LYMPH % 29.1 % (20.0-40.0); MEAN CORPUSCULAR HEMOGLOBIN 23.5 pg (27.0-31.0); MEAN CORPUSCULAR HGB CONC 32.9 g/dL (33.0-37.0); MEAN PLATELET VOLUME 7.8 fL (7.2-11.7); MONO % 7.5 % (0.0-10.0); NEUT # 8.4 K/uL (1.8-7.0); NEUT % 60.9 % (50.0-75.0); NRBC % 0.1 % (0.0-2.0); RBC 4.58 Mil/uL (3.80-5.20); RED CELL DISTRIBUTION WIDTH 23.3 % (11.5-14.5); WHITE BLOOD COUNT 13.8 K/uL (4.8-10.8)
[2018-02-21 23:01] LABS: MEAN CELL VOLUME 71.4 fL (81.0-99.0)
[2018-02-21 23:08] LABS: ALB/GLOB RATIO 1.3 (1.0-2.1); ALBUMIN 4.2 g/dL (3.5-5.0); ALT/SGPT 19 U/L (9-52); AST/SGOT 23 U/L (14-36); BLOOD UREA NITROGEN 9 mg/dL (7-17); CALCIUM 9.5 mg/dl (8.6-10.4); GFR AFRICAN-AMERICAN > 60; GFR NON-AFRICAN AMERICAN > 60
[2018-02-21 23:53] LABS: INR 1.1; PROTHROMBIN TIME 11.7 SECONDS (9.7-12.2)
[2018-02-22 00:46] VITALS: BP 113/74; PULSE 65; RESP 17; TEMP 98.5; O2SAT 99
--- NOTE | 2018-02-22 11:35 | US ---
Pelvic ultrasound History: Pelvic pain. Comparison: 06/19/2017 Technique: Real-time sonography was performed through the pelvis utilizing transabdominal and transvaginal techniques. Findings: Uterus: 8.7 x 5.3 x 5.4 centimeters. Heterogeneous echotexture. Retroverted. Cervix measures 3.8 centimeters in length. Intrauterine gestational sac measuring 2.0 centimeters corresponding to a gestational age of 6 weeks 4 days. Yolk sac measures 3 millimeters, within normal limits. [place]-rump length measures 8.7 millimeters corresponding to a gestational age of 6 weeks and 6 days. heart rate of 124 beats per minute. No free fluid in the pelvic cul-de-sac. Right ovary: 2.6 x 1.7 x 2.4 centimeters. Normal. Left ovary: 3.4 x 2.7 x 3.0 centimeters. Normal flow. Heterogeneous cyst measuring 2.0 x 1.5 x 2.2 centimeters. Impression: Single live intrauterine corresponding to a gestational age of 6 weeks and 6 days by crown-rump length of 8.7 millimeters. heart rate of 124 beats per minute. 2.2 centimeter left ovarian corpus luteal cyst. Limited 1st trimester ultrasound for viability purposes only. Continued interval followup with serial ultrasound, serial HCG levels, and gynecological consultation would be helpful if clinically indicated. These findings were preliminarily reported at 11:49 p.m. on 02/21/[address] Lazaro Pickard from [facility].
== END 2018-02-22 00:48 | disposition home or self-care (01) ==
LOC: C.ER 21:46
DX: O26.91 Pregnancy related conditions, unspecified, first trimester (principal); R10.9 Unspecified abdominal pain; Z3A.01 Less than 8 weeks gestation of pregnancy
CPT/HCPCS: 76805; 76817; 80053; 84702; 85025; 85610; 85730; 86850; 86900; 96360; 99283; J7030

== ENCOUNTER 2018-08-08 10:00 | Emergency (ER) | payer OTHER ==
[2018-08-08] MEDS ORDERED: Lactated Ringer's 1,000 ML IV ONE (10:48)
[2018-08-08] MEDS ORDERED: Lactated Ringer's 1,000 ML IV SCH (11:00)
[2018-08-08 11:48] LABS: SQUAMOUS EPITHIAL 5 /hpf (0-5); URINE BACTERIA FEW (<OCC); URINE BILIRUBIN NEGATIVE (NEGATIVE); URINE BLOOD NEGATIVE (NEGATIVE); URINE COLOR Yellow (YELLOW); URINE GLUCOSE (UA) NORMAL (Normal); URINE LEUKOCYTE ESTERASE 1+ Leu/uL (Negative); URINE PROTEIN NEGATIVE (NEGATIVE); URINE UROBILINOGEN NORMAL mg/dL (0.2-1.0)
[2018-08-08 11:52] LABS: URINE CLARITY SLHAZY (Clear)
[2018-08-08 11:56] LABS: EOS # 0.1 K/uL (0.0-0.7); EOS % 0.8 % (0.0-4.0); MEAN PLATELET VOLUME 8.6 fL (7.2-11.7); NRBC % 0.1 % (0.0-2.0); RED CELL DISTRIBUTION WIDTH 13.5 % (11.5-14.5)
[2018-08-08 12:06] LABS: BASO # 0.1 K/uL (0.0-0.2); BASO % 0.5 % (0.0-2.0); HEMOGLOBIN 12.6 g/dL (11.0-16.0); LYMPH % 21.3 % (20.0-40.0); MEAN CELL VOLUME 90.4 fL (81.0-99.0); MEAN CORPUSCULAR HEMOGLOBIN 30.3 pg (27.0-31.0); MEAN CORPUSCULAR HGB CONC 33.5 g/dL (33.0-37.0); MONO # 1.1 K/uL (0.0-0.8); MONO % 8.1 % (0.0-10.0); NEUT # 9.7 K/uL (1.8-7.0); NEUT % 69.3 % (50.0-75.0); RBC 4.15 Mil/uL (3.80-5.20); WHITE BLOOD COUNT 14.1 K/uL (4.8-10.8)
--- NOTE | 2018-08-08 12:56 | US ---
Indication: Pelvic pain, 33 weeks, needs measurements Comparison: None available Technique: Real-time ultrasound was performed through the pelvis. Findings: There is a single living fetus in cephalic presentation. Amniotic fluid volume is within normal limits. Posterior placenta. The placenta is not previa. There are no adnexal masses or cysts evident. Cervix length measures approximately 3.7 cm. The study was performed for the emergent evaluation of pain, and the whole anatomic survey of the fetus was not performed. This should be performed on an outpatient elective basis as clinically warranted. Limited visualized anatomy appears grossly unremarkable. Measurements and calculations: Fetus has a composite sonographic age of 30 weeks 5 days. This calculation is based on the biparietal diameter, head circumference, abdominal circumference, and femur length. Estimated heart rate 144.4 beats per min. Estimated weight 1528 g. Biophysical profile: movements 2/2 breathing 2/2 tone 2/2 Amniotic fluid 2/2 Total score impression: /8 Impression: Single living fetus with a composite sonographic age of 30 weeks 5 days. Estimated heart rate 144.4 beats per min. Biophysical profile of 8 out of 8.
--- NOTE | 2018-08-10 11:03 | OBHP ---
Datetime: 08/08/2018 11:00 IP Adm Impression: , intrauterine IP Chief Complaint Other: Pelvic pain IP Admit Plan: Observation/Evaluation Admit Comment, IP Provider: [facility] H_P Patient is a 27 yo female presenting 31.3 weeks gestation. Patient is unsure of her LMP. E . She presents to [facility] complaining of pelvic pain since 6am today. She also reports a hitesh lar episode of pain 2 days prior and was seen at [facility] for the pain, was told she was dehydrated, discharged and told to return if pain persisted. Patient also complains of generalized h eadache for the past 2 days improved with tylenol, urinary frequency, feeling like her urine is "hot ", nuasea, and buring epigastric pain radiating to the chest. Denies fever, chills, vomiting, blurred vision, LE swelling. She notes movement is slower than usual today. Denies vaginal bleeding, c ontractions and rupture of membranes. As per [facility] records where patient is receiving care: blood type is O pos itive, Rubella immune, HIV is negative, Hep B and Hep C negative OB Hx: Previous due to macrosomia in 2011 at approximately 36-37 weeks (patient is unsur e). Delivered 10.5 lb female. was done in the [place]. Digital Sales Executive Hx: 14x irregular x9-10 days. Last pap smear was in 09/2017, normal results. No history of fibr oid or cysts. No hx of STDs. Not sexually active during . No family history of crystal growing technician cancer. PMHx: Denies PSHx: 2011 in Medications: vitamins and iron supplement Allergies: NKDA Social: Denies tobacco and illicit drugs. Occassional alcohol use prior to , no alcohol d uring . Lives in [place] with an uncle and cousin. Baby's father lives in [place] and will mo ve in together when the baby is born. Family Hx: father is 40 years old, has hyperglycemia. Mother is 38 years old, no medical problems. Assessment and Plan: - Labs -UA - fibronectin -Vaginal culture -OB US -Zofran 4mg IV -Pepcid 20mg IV -observe Case discussed with Dr. Ellis. Pebbles Serrato, PGY-1. (Annotations: Data stored by CPN on behalf of user) Extremities - PN: Normal Abdomen - PN: Normal Back - PN: Abnormal Lungs - PN: Normal Heart - PN: Normal Neurologic - PN: Normal HEENT - PN: Normal General - PN: Normal Comments, ACOG Physical Exam: Back: Tender to palpation of lumbar paraspinal muscles on the right Abdomen: Uterine fundus is at 28cm. Pelvic: Cervix is closed and posterior. +white discharge. IP Chief Complaint: Other
[2018-08-10 15:03] VITALS: BP 107/75; PULSE 98
== END 2018-08-08 13:45 | disposition home or self-care (01) ==
LOC: C.EROB 10:00
DX: O23.43 Unspecified infection of urinary tract in pregnancy, third trimester (principal); Z3A.49 Greater than 42 weeks gestation of pregnancy
CPT/HCPCS: 76815; 76818; 81001; 85025; 99283; J2405; J7120

== ENCOUNTER 2018-08-25 12:00 | Emergency (ER) | payer OTHER ==
[2018-08-25] MEDS ORDERED: Sodium Chloride 0.9% 1,000 ML IV ONE (12:12)
[2018-08-25 12:36] LABS: SQUAMOUS EPITHIAL 15 /hpf (0-5); URINE BACTERIA OCC (<OCC); URINE BILIRUBIN NEGATIVE (NEGATIVE); URINE BLOOD NEGATIVE (NEGATIVE); URINE CLARITY Hazy (Clear); URINE COLOR Yellow (YELLOW); URINE GLUCOSE (UA) NORMAL (Normal); URINE LEUKOCYTE ESTERASE TRACE Leu/uL (Negative); URINE PROTEIN 1+ mg/dL (NEGATIVE); URINE UROBILINOGEN NORMAL mg/dL (0.2-1.0)
--- NOTE | 2018-08-25 14:13 | OBHP ---
Datetime: 08/25/2018 11:54 Admit Comment, IP Provider: 27 yo with IUP at 35 + 1 weeks by YOAV 09/28/18 presents for "I'm ready for my CS" reports mild dysuria +FM - CTX - LOF - VB history of primary CS in [place] 6 years ago, unknown indication no significant CONTINUOUS IMPROVEMENT ANALYST or medical history surgical history of one CS prior father with history of diabetes NKDA plan UA C_S, IVF hydration will reasses addendum: UA negative for infection, s/p hydration, SVE unchanged irreg uterine contractions and irritability disipate after patient voids this is likely due to overdistention rather than labor head is low in the pelvis and mother reports dull constant pressure that has unchanged for w eeks. counseled that she should rest, hydrate and void frequently to counter the symptoms of overdist ension. she has support person at bedside. strong labor precautions discussed. patient to return to [facility] ER if has vaginal bleeding, decreaed movements, leakage of fluids or any changes or wors ening of her pain. discharge instructions given in english with at bedside, expressed understanding. follow up next week with [facility] AdmitDate IP: 34.6
[2018-08-25 18:37] VITALS: BP 110/62; PULSE 76; RESP 18; TEMP 98
== END 2018-08-25 14:30 | disposition home or self-care (01) ==
LOC: C.EROB 12:00
DX: O47.03 False labor before 37 completed weeks of gestation, third trimester (principal); Z3A.35 35 weeks gestation of pregnancy
CPT/HCPCS: 81001; 99283; J7030